=== PATIENT | male | born 1985 | race Hispanic/Latino ===

== ENCOUNTER 2017-09-13 16:09 | Inpatient (IN) | payer BC ==
[2017-09-13] MEDS ORDERED: Sodium Chloride 0.9% 1,000 ML IV STA ×2 (16:36→20:05)
[2017-09-13 17:08] LABS: BASO % 0.3 % (0.0-2.0); EOS % 0.1 % (0.0-4.0); HEMATOCRIT 45.9 % (35.0-51.0); LYMPH # 1.7 K/uL (1.0-4.3); LYMPH % 9.5 % (20.0-40.0); MEAN CELL VOLUME 89.4 fl (80.0-94.0); MEAN CORPUSCULAR HGB CONC 33.6 g/dL (33.0-37.0); MEAN PLATELET VOLUME 8.5 fl (7.2-11.7); MONO # 1.5 K/uL (0.0-0.8); MONO % 8.4 % (0.0-10.0); NEUT # 14.7 K/uL (1.8-7.0); NEUT % 81.7 % (50.0-75.0); PLATELET COUNT 232 K/uL (130-400); RED CELL DISTRIBUTION WIDTH 12.6 % (11.5-14.5)
[2017-09-13 17:13] LABS: VENOUS BLOOD GAS BASE EXCESS 6.3 mmol/L (0.0-2.0); VENOUS BLOOD GAS PCO2 51 mmHg (40-60); VENOUS BLOOD PH 7.41 (7.32-7.43)
[2017-09-13 17:28] LABS: ALB/GLOB RATIO 1.3 (1.0-2.1); ALKALINE PHOSPHATASE 64 U/L (38-126); ALT/SGPT 45 U/L (21-72); AST/SGOT 21 U/L (17-59); BILIRUBIN,TOTAL 0.8 mg/dl (0.2-1.3); BLOOD UREA NITROGEN 12 mg/dl (9-20); CALCIUM 9.3 mg/dL (8.4-10.2); CARBON DIOXIDE 27 mmol/L (22-30); CHLORIDE 100 mmol/L (98-107); GFR AFRICAN-AMERICAN > 60; GLUCOSE,RANDOM 105 mg/dL (75-110); LIPASE 26 U/L (23-300); POTASSIUM 4.1 MMOL/L (3.6-5.0); SODIUM 141 mmol/l (132-148); TOTAL PROTEIN 7.6 G/DL (6.3-8.2)
[2017-09-13 17:38] LABS: RBC URINE 3 /hpf (0-3); URINE BACTERIA RARE (<OCC); URINE BILIRUBIN NEGATIVE (NEGATIVE); URINE BLOOD NEGATIVE (NEGATIVE); URINE COLOR YELLOW (YELLOW); URINE GLUCOSE (UA) NEG (Normal); URINE KETONE 20 mg/dL (NEGATIVE); URINE LEUKOCYTE ESTERASE NEG Leu/uL (Negative); URINE PROTEIN NEGATIVE (NEGATIVE); URINE UROBILINOGEN 0.2-1.0 mg/dL (0.2-1.0); WBC URINE 1 /hpf (0-5)
--- NOTE | 2017-09-13 19:09 | ED PDOC ---
HPI: Abdomen Time Seen by Provider: 09/13/17 16:25 Chief Complaint (Nursing): Abdominal Pain Chief Complaint (Provider): Abdominal Pain History Per: Patient History/Exam Limitations: no limitations Onset/Duration Of Symptoms: Days (yesterday) Current Symptoms Are (Timing): Still Present Location Of Pain/Discomfort: LUQ Associated Symptoms: Fever. denies: Nausea, Vomiting, Diarrhea, Urinary Symptoms Additional Complaint(s): Patient is a 31 y/o male with no past medical history, who presents to the ED complaining of let upper quadrant abdominal pain since yesterday that has been worsening. Patient also notes a slight fever but denies any nausea, vomiting, diarrhea, dysuria, constipation, or hematuria. He reports last taking Motrin at 03:00 and was seen by [facility]ago, which sent him here for further evaluation. Patient denies any further complaints or symptoms. PCP: jorge shaikh Past Medical History Reviewed: Historical Data, Nursing Documentation, Vital Signs Vital Signs: Last Vital Signs Temp 100.2 F H 09/13/17 16:15 Pulse 78 09/13/17 16:15 Resp 18 09/13/17 16:15 BP 135/78 09/13/17 16:15 Pulse Ox 99 09/13/17 19:16 - Medical History PMH: No Chronic Diseases - Surgical History Surgical History: No Surg Hx - Family History Family History: States: No Known Family Hx - Social History Current smoker - smoking cessation education provided: No Alcohol: None Drugs: Denies - Allergies Allergies/Adverse Reactions: Allergies Allergy/AdvReac Type Severity Reaction Status Date / Time No Known Allergies Allergy Verified 09/13/17 16:18 Review of Systems ROS Statement: Except As Marked, All Systems Reviewed And Found Negative Constitutional: Positive for: Fever (slight fever) Gastrointestinal: Positive for: Abdominal Pain (Left upper quadrant). Negative for: Nausea, Vomiting, Diarrhea, Constipation Genitourinary Male: Negative for: Dysuria, Hematuria Physical Exam - Reviewed Nursing Documentation Reviewed: Yes Vital Signs Reviewed: Yes - Physical Exam Appears: Positive for: Non-toxic, No Acute Distress Head Exam: Positive for: ATRAUMATIC, NORMOCEPHALIC Skin: Positive for: Normal Color, Warm, Dry Eye Exam: Positive for: Normal appearance, EOMI, PERRL Neck: Positive for: Normal, Painless ROM, Supple Cardiovascular/Chest: Positive for: Regular Rate, Rhythm. Negative for: Murmur Respiratory: Positive for: Normal Breath Sounds. Negative for: Respiratory Distress Gastrointestinal/Abdominal: Positive for: Soft, Tenderness (left upper quadrant , left lower quadrant) Back: Positive for: L CVA Tenderness. Negative for: Vertebral Tenderness Extremity: Positive for: Normal ROM. Negative for: Tenderness, Pedal Edema Neurologic/Psych: Positive for: Alert, Oriented (x3). Negative for: Motor/ Sensory Deficits - Laboratory Results Result Diagrams: 09/13/17 17:00 09/13/17 17:00 - ECG O2 Sat by Pulse Oximetry: 99 (RA) Pulse Ox Interpretation: Normal Medical Decision Making Medical Decision Making: Time: 16:35 Initial Impression: UTI, pyelonephritis Initial Plan: -VBG Shock Panel -CT abdomen/pelvis -Labs -ED Urine Dipstick -Morphine 2mg IV -Sodium chloride 0.9% 1000ml, 1000 mls/hr -Tylenol 650mg PO -Blood culture -Urinalysis -Reevaluation Time: 18:03 -Urine culture Time: 19:15 -Patient signed out by me to Dr. Young Scribe Attestation: Documented by Marilyn Arenas, acting as a scribe for Aleja Rutledge MD Provider Scribe Attestation: All medical record entries made by the Scribe were at my direction and personally dictated by me. I have reviewed the chart and agree that the record accurately reflects my personal performance of the history, physical exam, medical decision making, and the department course for this patient. I have also personally directed, reviewed, and agree with the discharge instructions and disposition. Disposition - Disposition Disposition: Transfer of Care Disposition Time: 19:15 Forms: 51 Auto ([place] Citizen)
[2017-09-13 19:15] LABS: NEUTROPHIL 80 % (42-75); TOTAL CELLS COUNTED 100
--- NOTE | 2017-09-13 19:20 | ED PDOC ---
"- Laboratory Results Result Diagrams: 09/13/17 17:00 09/13/17 17:00 - ECG O2 Sat by Pulse Oximetry: 99 (RA) Medical Decision Making Medical Decision Making: Time: 19:15 -Patient signed over to me by Dr. Rutledge Time: 19:50 CT abdomen Results FINDINGS: Lower thorax: No acute findings. ABDOMEN: Liver: There is fatty infiltration of the liver. There is no hepatic mass Gallbladder and bile ducts: Unremarkable. No calcified stones. No ductal dilation. Pancreas: There is fat stranding about the pancreatic tail and in the left anterior pararenal space. The pancreas is otherwise unremarkable. No ductal dilation. Spleen: Unremarkable. No splenomegaly. Adrenals: Unremarkable. No mass. Kidneys and ureters: There is a 0.2 cm nonobstructing right midpole renal calculus. The left kidney is unremarkable. Stomach and bowel: There is mild colonic diverticulosis. The small bowel and stomach are unremarkable. No obstruction. No mucosal thickening. Appendix: No findings to suggest acute appendicitis. PELVIS: Bladder: Unremarkable. No stones. Reproductive: Unremarkable as visualized. JENNIFER SCOTT | Preliminary Radiology Report ACOUSTIC ENGINEER (QA) DISCREPANCY? If there is a discrepancy between the preliminary and final interpretation, please notify [facility] via [email or web address]. If you do not have access to our QA portal, call our QA team at [phone] CONFIDENTIALITY STATEMENT This report is intended only for the use of the referring physician, and only in accordance with law, If you received this in error, call [phone] Page 2 of 2 ABDOMEN and PELVIS: Intraperitoneal space: Unremarkable. No free air. No significant fluid collection. Bones/joints: No acute fracture. No dislocation. Soft tissues: Unremarkable. Vasculature: Unremarkable. No abdominal aortic aneurysm. Lymph nodes: Unremarkable. No enlarged lymph nodes. IMPRESSION: Peripancreatic and left anterior pararenal fat infiltration consistent with pancreatitis. Nonobstructing 2 mm right renal calculus. Fatty infiltration of the liver. Mild colonic diverticulosis. Time: 20:50 -Symptoms discussed with patient at length. Patient will be admitted for further treatment. Case discussed with Dr. Serrato Diagnosis: Acute Diverticulitis Patient Condition: Fair Scribe Attestation: Documented by Marilyn Arenas, acting as a scribe for Christ Young MD Provider Scribe Attestation: All medical record entries made by the Scribe were at my direction and personally dictated by me. I have reviewed the chart and agree that the record accurately reflects my personal performance of the history, physical exam, medical decision making, and the department course for this patient. I have also personally directed, reviewed, and agree with the discharge instructions and disposition. Disposition Discussed With : Keith Serrato - Clinical Impression Clinical Impression: Diverticulitis - POA Present On Arrival: None - Disposition Disposition: Admitted as In-Patient Disposition Time: 20:50 Condition: FAIR"
[2017-09-13] MEDS ORDERED: Ciprofloxacin 400mg/200ml D5W 400 MG/200 ML BAG IV STA (20:16)
[2017-09-13] MEDS ORDERED: Ciprofloxacin 400mg/200ml D5W 400 MG/200 ML BAG IVPB ONE (20:33)
[2017-09-13] MEDS ORDERED: HYDROmorphone 0.5 mg/0.5 ml ISec IVP PRN (22:15)
[2017-09-13] MEDS: Dextrose 5%/Lactated Ringer's 1,000 ML IV SCH (22:30)
[2017-09-14 06:58] LABS: HEMATOCRIT 40.2 % (35.0-51.0); MEAN CELL VOLUME 90.1 fl (80.0-94.0); MEAN CORPUSCULAR HGB CONC 33.4 g/dL (33.0-37.0); WHITE BLOOD COUNT 13.2 K/uL (4.8-10.8)
[2017-09-14 07:01] LABS: ALB/GLOB RATIO 1.2 (1.0-2.1); ALKALINE PHOSPHATASE 54 U/L (38-126); ALT/SGPT 35 U/L (21-72); AST/SGOT 18 U/L (17-59); BILIRUBIN,TOTAL 0.6 mg/dl (0.2-1.3); BLOOD UREA NITROGEN 9 mg/dl (9-20); CALCIUM 8.4 mg/dL (8.4-10.2); CARBON DIOXIDE 28 mmol/L (22-30); CHLORIDE 102 mmol/L (98-107); GFR AFRICAN-AMERICAN > 60; GLUCOSE,RANDOM 118 mg/dL (75-110); POTASSIUM 3.8 MMOL/L (3.6-5.0); SODIUM 141 mmol/l (132-148); TOTAL PROTEIN 6.4 G/DL (6.3-8.2)
[2017-09-14 07:28] VITALS: O2SAT 96
--- NOTE | 2017-09-14 08:54 | CT ---
PROCEDURE: CT Abdomen and Pelvis without intravenous contrast HISTORY: LUQ/L flank pain COMPARISON: None. TECHNIQUE: Technique. Contrast Dose: No contrast was administered. Radiation dose: Total exam DLP = 1128 mGy-cm. This CT exam was performed using one or more of the following dose reduction techniques: Automated exposure control, adjustment of the mA and/or kV according to patient size, and/or use of iterative reconstruction technique. FINDINGS: LOWER THORAX: Minor atelectasis is appreciated. No pleural effusion. No pericardial effusion. Visualized esophagus is unremarkable. LIVER: Liver slightly fatty infiltrated without evidence of focal mass or intrahepatic ductal dilatation. GALLBLADDER AND BILE DUCTS: Unremarkable. PANCREAS: There is some mild peripancreatic inflammatory changes adjacent to the tail the pancreas, however the pancreas is otherwise normal in size. The peripancreatic inflammatory changes more than likely extend from an inflamed proximal descending left colon inflammatory process rather than pancreatitis. Correlation however with patient's laboratory values would be suggested. SPLEEN: There is some mild inflammatory changes seen adjacent to the spleen anteriorly, this also more than likely extends from the inflammatory changes in the colon. ADRENALS: Unremarkable. No mass. KIDNEYS AND URETERS: Single tiny 1-2 millimeter right renal nonobstructing calculus. No evidence of hydronephrosis or ureteral calculus. A small amount of inflammatory changes seen in the left anterior para renal space from the previously described left upper quadrant inflammatory process. VASCULATURE: Unremarkable. No aortic aneurysm. BOWEL: There is evidence of proximal descending colon wall thickening and pericolonic inflammatory change most suggestive of colitis of probable infectious etiology. The pericolonic inflammatory changes extend into the left anterior para renal space, as well as adjacent to tail the pancreas and anterior aspect of the spleen. There is additionally some inflammatory change extending into the left pericolic gutter. No free intraperitoneal air or focal fluid collection to suggest abscess is noted. Small bowel is unremarkable as well as the remainder of the colon. No bowel obstruction is noted. APPENDIX: Unremarkable. Normal appendix. PERITONEUM: No free intraperitoneal air. A few small lymph nodes are seen adjacent to the tail the pancreas and proximal descending colon. LYMPH NODES: No retroperitoneal adenopathy or pelvic adenopathy seen. BLADDER: Unremarkable. REPRODUCTIVE: Unremarkable. BONES: Next degenerative changes are seen in the lower lumbar spine region at L5-S1. OTHER FINDINGS: Visualized stomach is unremarkable. IMPRESSION: Inflammatory process in the left upper quadrant. There appears to be greater amount of proximal descending colon wall thickening and pericolonic inflammatory change. This appears to extend into the left anterior para renal space, and adjacent to the pancreas and spleen which are otherwise not enlarged. Findings more than likely represent colitis rather than pancreatitis although pancreatitis is not fully excluded, and correlation with the patient's laboratory values are suggested. This report differs from the preliminary report provided by the on-call radiologist. Emergency room physician Dr. Arellano was notified.
[2017-09-14] MEDS: Ciprofloxacin 400mg/200ml D5W 400 MG/200 ML BAG IVPB SCH ×2 (09:08→21:42)
[2017-09-14] MEDS: Dextrose 5%/Lactated Ringer's 1,000 ML IV SCH ×3 (09:08→21:43)
--- NOTE | 2017-09-14 14:54 | CP.PCM.HP ---
History of Present Illness - History of Present Illness History of Present Illness: This is a 31 y/o male admitted from yesterday for progressive worsening of abdominal pain since Friday. Claims that pain started as vague periumbilical pain then worsened to become localized at the LLQ area. Symptoms were associated with with fever and chills. There was no vomiting or diarrhea. He has never been ill before. Has no allergies Past medical and family hx are unremarkable. Present on Admission - Present on Admission Any Indicators Present on Admission: No History of DVT/PE: No History of Uncontrolled Diabetes: No Urinary Catheter: No Decubitus Ulcer Present: No Past Patient History - Past Medical History & Family History Past Medical History?: No - Past Social History Smoking Status: Never Smoked - HEMATOLOGICAL/ONCOLOGICAL Hx AIDS: No Hx Human Immunodeficiency Virus (HIV): No - MUSCULOSKELETAL/RHEUMATOLOGICAL Hx Falls: No - PSYCHIATRIC Hx Substance Use: No - SURGICAL HISTORY Hx Musculoskeletal Surgery: Yes - ANESTHESIA Hx Anesthesia: No Hx Anesthesia Reactions: No Hx Malignant Hyperthermia: No Has any member of the family had a problem w/ anesthesia?: No Meds Allergies/Adverse Reactions: Allergies Allergy/AdvReac Type Severity Reaction Status Date / Time No Known Allergies Allergy Verified 09/13/17 16:18 Physical Exam - Head Exam Head Exam: NORMAL INSPECTION - Eye Exam Eye Exam: Normal appearance - ENT Exam ENT Exam: Mucous Membranes Moist - Respiratory Exam Respiratory Exam: NORMAL BREATHING PATTERN - Cardiovascular Exam Cardiovascular Exam: REGULAR RHYTHM - GI/Abdominal Exam GI & Abdominal Exam: Guarding, Normal Bowel Sounds, Soft, Tenderness - Neurological Exam Neurological exam: Oriented x3 - Psychiatric Exam Psychiatric exam: Normal Mood - Skin Skin Exam: Normal Color Results - Vital Signs Recent Vital Signs: Last Vital Signs Temp 98.6 F 09/14/17 07:27 Pulse 67 09/14/17 07:27 Resp 20 09/14/17 07:27 BP 122/71 09/14/17 07:27 Pulse Ox 96 09/14/17 07:27 - Labs Result Diagrams: 09/14/17 05:30 09/14/17 05:30 Labs: Laboratory Results - last 24 hr 09/13/17 09/13/17 09/13/17 17:00 17:00 17:00 WBC 18.0 H RBC 5.13 Hgb 15.4 Hct 45.9 MCV 89.4 MCH 30.0 MCHC 33.6 RDW 12.6 Plt Count 232 MPV 8.5 Neut % (Auto) 81.7 H Lymph % (Auto) 9.5 L Glasscock % (Auto) 8.4 Eos % (Auto) 0.1 Baso % (Auto) 0.3 Neut # 14.7 H Lymph # 1.7 Glasscock # 1.5 H Eos # 0.0 Baso # 0.0 Neutrophils % (Manual) 80 H Lymphocytes % (Manual) 12 L Monocytes % (Manual) 8 Platelet Estimate Normal RBC Morphology Normal ESR pO2 VBG pH VBG pCO2 VBG HCO3 VBG Total CO2 VBG O2 Sat (Calc) VBG Base Excess VBG Potassium Sodium 141 Chloride 100 Glucose Lactate FiO2 Potassium 4.1 Carbon Dioxide 27 Anion Gap 18 BUN 12 Creatinine 0.9 Est GFR ( Amer) > 60 Est GFR (Non-Af Amer) > 60 Random Glucose 105 Calcium 9.3 Total Bilirubin 0.8 AST 21 ALT 45 Alkaline Phosphatase 64 Total Protein 7.6 Albumin 4.3 Globulin 3.3 Albumin/Globulin Ratio 1.3 Lipase 26 Venous Blood Potassium Urine Color Yellow Urine Clarity Slighty-cloudy Urine pH 6.0 Ur Specific [place] 1.017 Urine Protein Negative Urine Glucose (UA) Neg Urine Ketones 20 Urine Blood Negative Urine Nitrate Negative Urine Bilirubin Negative Urine Urobilinogen 0.2-1.0 Ur Leukocyte Esterase Neg Urine RBC (Auto) 3 Urine Microscopic WBC 1 Urine Bacteria Rare 09/13/17 09/14/17 09/14/17 17:00 05:30 05:30 WBC 13.2 H RBC 4.47 Hgb 13.4 D Hct 40.2 MCV 90.1 MCH 30.0 MCHC 33.4 RDW 12.0 Plt Count 207 MPV Neut % (Auto) Lymph % (Auto) Glasscock % (Auto) Eos % (Auto) Baso % (Auto) Neut # Lymph # Glasscock # Eos # Baso # Neutrophils % (Manual) Lymphocytes % (Manual) Monocytes % (Manual) Platelet Estimate RBC Morphology ESR 47 H pO2 23 L VBG pH 7.41 VBG pCO2 51 VBG HCO3 28.3 VBG Total CO2 33.9 H VBG O2 Sat (Calc) 50.6 VBG Base Excess 6.3 H VBG Potassium 3.8 Sodium 134.0 141 Chloride 101.0 102 Glucose 111 H Lactate 1.0 FiO2 21.0 Potassium 3.8 Carbon Dioxide 28 Anion Gap 15 BUN 9 Creatinine 1.0 Est GFR ( Amer) > 60 Est GFR (Non-Af Amer) > 60 Random Glucose 118 H Calcium 8.4 Total Bilirubin 0.6 AST 18 ALT 35 Alkaline Phosphatase 54 Total Protein 6.4 Albumin 3.5 Globulin 2.9 Albumin/Globulin Ratio 1.2 Lipase Venous Blood Potassium 3.8 Urine Color Urine Clarity Urine pH Ur Specific [place] Urine Protein Urine Glucose (UA) Urine Ketones Urine Blood Urine Nitrate Urine Bilirubin Urine Urobilinogen Ur Leukocyte Esterase Urine RBC (Auto) Urine Microscopic WBC Urine Bacteria - Imaging and Cardiology CT scan - abdomen Additional comment: CT scan of [facility] abdomen showed a proximal descending colon inflammatory changes. Assessment & Plan (1) Diverticulitis Status: Acute - Assessment and Plan (Free Text) Plan: Keep NPO start IV fluids start clear liquid advance diet repeat cbc sed rate IV cipro and flagyl
[2017-09-14 16:20] VITALS: RESP 18
[2017-09-15] MEDS: Dextrose 5%/Lactated Ringer's 1,000 ML IV SCH ×2 (00:12→12:05)
[2017-09-15 06:10] LABS: BASO # 0.1 K/uL (0.0-0.2); EOS # 0.2 K/uL (0.0-0.7); EOS % 2.4 % (0.0-4.0); HEMATOCRIT 41.2 % (35.0-51.0); LYMPH # 2.3 K/uL (1.0-4.3); LYMPH % 28.2 % (20.0-40.0); MEAN CELL VOLUME 90.3 fl (80.0-94.0); MEAN CORPUSCULAR HEMOGLOBIN 30.1 pg (27.0-31.0); MEAN CORPUSCULAR HGB CONC 33.3 g/dL (33.0-37.0); MEAN PLATELET VOLUME 8.6 fl (7.2-11.7); MONO # 0.8 K/uL (0.0-0.8); MONO % 9.6 % (0.0-10.0); NEUT # 4.9 K/uL (1.8-7.0); NEUT % 58.8 % (50.0-75.0); RED CELL DISTRIBUTION WIDTH 12.4 % (11.5-14.5); WHITE BLOOD COUNT 8.2 K/uL (4.8-10.8)
[2017-09-15 08:28] VITALS: BP 132/77; PULSE 52; TEMP 98.4
[2017-09-15] MEDS: Ciprofloxacin 400mg/200ml D5W 400 MG/200 ML BAG IVPB SCH (09:01)
--- NOTE | 2017-09-15 09:16 | CP.PCM.DIS ---
Provider - Provider Date of Admission: 09/13/17 20:18 Attending physician: Keith Serrato MD Time Spent in preparation of Discharge (in minutes): 30 Diagnosis - Discharge Diagnosis (1) Diverticulitis Status: Acute Hospital Course - Lab Results Lab Results: Micro Results 09/13/17 18:15 Blood Blood Culture - Preliminary NO GROWTH AFTER 24 HOURS 09/13/17 16:45 Blood Blood Culture - Preliminary NO GROWTH AFTER 24 HOURS Most Recent Lab Values WBC 8.2 K/uL (4.8-10.8) 09/15/17 05:25 RBC 4.56 Mil/uL (4.40-5.90) 09/15/17 05:25 Hgb 13.7 g/dL (12.0-18.0) 09/15/17 05:25 Hct 41.2 % (35.0-51.0) 09/15/17 05:25 MCV 90.3 fl (80.0-94.0) 09/15/17 05:25 MCH 30.1 pg (27.0-31.0) 09/15/17 05:25 MCHC 33.3 g/dL (33.0-37.0) 09/15/17 05:25 RDW 12.4 % (11.5-14.5) 09/15/17 05:25 Plt Count 212 K/uL (130-400) 09/15/17 05:25 MPV 8.6 fl (7.2-11.7) 09/15/17 05:25 Neut % (Auto) 58.8 % (50.0-75.0) 09/15/17 05:25 Lymph % (Auto) 28.2 % (20.0-40.0) 09/15/17 05:25 Door % (Auto) 9.6 % (0.0-10.0) 09/15/17 05:25 Eos % (Auto) 2.4 % (0.0-4.0) 09/15/17 05:25 Baso % (Auto) 1.0 % (0.0-2.0) 09/15/17 05:25 Neut # 4.9 K/uL (1.8-7.0) 09/15/17 05:25 Lymph # 2.3 K/uL (1.0-4.3) 09/15/17 05:25 Door # 0.8 K/uL (0.0-0.8) 09/15/17 05:25 Eos # 0.2 K/uL (0.0-0.7) 09/15/17 05:25 Baso # 0.1 K/uL (0.0-0.2) 09/15/17 05:25 Neutrophils % (Manual) 80 % (42-75) H 09/13/17 17:00 Lymphocytes % (Manual) 12 % (20-50) L 09/13/17 17:00 Monocytes % (Manual) 8 % (0-10) 09/13/17 17:00 Platelet Estimate Normal (NORMAL) 09/13/17 17:00 RBC Morphology Normal (NORMAL) 09/13/17 17:00 ESR 51 mm/hr (0-15) H 09/15/17 05:25 pO2 23 mm/Hg (30-55) L 09/13/17 17:00 VBG pH 7.41 (7.32-7.43) 09/13/17 17:00 VBG pCO2 51 mmHg (40-60) 09/13/17 17:00 VBG HCO3 28.3 mmol/L 09/13/17 17:00 VBG Total CO2 33.9 mmol/L (22-28) H 09/13/17 17:00 VBG O2 Sat (Calc) 50.6 % (40-65) 09/13/17 17:00 VBG Base Excess 6.3 mmol/L (0.0-2.0) H 09/13/17 17:00 VBG Potassium 3.8 mmol/L (3.6-5.2) 09/13/17 17:00 Sodium 134.0 mmol/L (132-148) 09/13/17 17:00 Chloride 101.0 mmol/L (98-107) 09/13/17 17:00 Glucose 111 mg/dL (75-110) H 09/13/17 17:00 Lactate 1.0 mmol/L (0.7-2.1) 09/13/17 17:00 FiO2 21.0 % 09/13/17 17:00 Sodium 141 mmol/l (132-148) 09/14/17 05:30 Potassium 3.8 MMOL/L (3.6-5.0) 09/14/17 05:30 Chloride 102 mmol/L (98-107) 09/14/17 05:30 Carbon Dioxide 28 mmol/L (22-30) 09/14/17 05:30 Anion Gap 15 (10-20) 09/14/17 05:30 BUN 9 mg/dl (9-20) 09/14/17 05:30 Creatinine 1.0 mg/dL (0.8-1.5) 09/14/17 05:30 Est GFR ( Amer) > 60 09/14/17 05:30 Est GFR (Non-Af Amer) > 60 09/14/17 05:30 Random Glucose 118 mg/dL (75-110) H 09/14/17 05:30 Calcium 8.4 mg/dL (8.4-10.2) 09/14/17 05:30 Total Bilirubin 0.6 mg/dl (0.2-1.3) 09/14/17 05:30 AST 18 U/L (17-59) 09/14/17 05:30 ALT 35 U/L (21-72) 09/14/17 05:30 Alkaline Phosphatase 54 U/L (38-126) 09/14/17 05:30 Total Protein 6.4 G/DL (6.3-8.2) 09/14/17 05:30 Albumin 3.5 g/dL (3.5-5.0) 09/14/17 05:30 Globulin 2.9 gm/dL (2.2-3.9) 09/14/17 05:30 Albumin/Globulin Ratio 1.2 (1.0-2.1) 09/14/17 05:30 Lipase 26 U/L (23-300) 09/13/17 17:00 Venous Blood Potassium 3.8 mmol/L (3.6-5.2) 09/13/17 17:00 Urine Color Yellow (YELLOW) 09/13/17 17:00 Urine Clarity Slighty-cloudy (Clear) 09/13/17 17:00 Urine pH 6.0 (5.0-8.0) 09/13/17 17:00 Ur Specific Raymond 1.017 (1.003-1.030) 09/13/17 17:00 Urine Protein Negative mg/dL (NEGATIVE) 09/13/17 17:00 Urine Glucose (UA) Neg mg/dL (Normal) 09/13/17 17:00 Urine Ketones 20 mg/dL (NEGATIVE) 09/13/17 17:00 Urine Blood Negative (NEGATIVE) 09/13/17 17:00 Urine Nitrate Negative (NEGATIVE) 09/13/17 17:00 Urine Bilirubin Negative (NEGATIVE) 09/13/17 17:00 Urine Urobilinogen 0.2-1.0 mg/dL (0.2-1.0) 09/13/17 17:00 Ur Leukocyte Esterase Neg Ervin/uL (Negative) 09/13/17 17:00 Urine RBC (Auto) 3 /hpf (0-3) 09/13/17 17:00 Urine Microscopic WBC 1 /hpf (0-5) 09/13/17 17:00 Urine Bacteria Rare (<OCC) 09/13/17 17:00 - Hospital Course Hospital Course: This is a 31 y/omale admitted for acute diverticulitis. Started as periumblical pain 3 days ago and localized at the LLQ area with fever and chilly sensation CT scan showed acute diverticulitis on the proximal descending colon. He was started on Flagyl and cipro and WBC was monitored. WBC dropped fro 18 on admission to 8 on discharge day. He was started on clear liquids and was advanced. He was sent home in stable condition and advised follow up in 1 to 2 weeks. Discharge Exam - Head Exam Head Exam: NORMAL INSPECTION - Eye Exam Eye Exam: Normal appearance - Respiratory Exam Respiratory Exam: NORMAL BREATHING PATTERN - Cardiovascular Exam Cardiovascular Exam: REGULAR RHYTHM - GI/Abdominal Exam GI & Abdominal Exam: Normal Bowel Sounds - Neurological Exam Neurological exam: CN II-XII Intact - Psychiatric Exam Psychiatric exam: Normal Mood Discharge Plan - Follow Up Plan Condition: FAIR Disposition: HOME/ ROUTINE Additional Instructions: send on cipro and flagyl x 10 days follow up in 1 to 2 weeks.
== END 2017-09-15 12:33 | disposition home or self-care (01) | DRG 392 ==
LOC: H.ER 16:09 → H.ERHOLD 20:18 → H.MEDSURG3 21:09 → H.MEDSURG1 21:29
PROVIDERS: ADMIT Family Medicine; ATTEND Family Medicine
DX: K57.32 Diverticulitis of large intestine without perforation or abscess without bleeding (principal); K76.0 Fatty (change of) liver, not elsewhere classified; N20.0 Calculus of kidney